=== PATIENT | female | born 1950 ===

== ENCOUNTER → 2018-05-26 | Outpatient (CLI) | payer MEDICARE ==
[~2018-05-26] MED LIST: DULO60CA6 PO; IOHEXOL 180 MG/ML 10 ML VIAL. ONE; LISI10TA2 PO; RANI150C PO; methylPREDNISolone ACETATE 40 MG/ML VIAL. ONE; methylPREDNISolone ACETATE 80 MG/ML VIAL. ONE; thyroid med
--- NOTE | 2018-05-28 05:21 | PAIN ---
DATE OF SERVICE: 05/27/2018 INITIAL CONSULTATION FOR PAIN CLINIC CHIEF COMPLAINT: Low back and bilateral lower extremity pain. HISTORY OF PRESENT ILLNESS: This is a 67-year-old female who presents with history of pain in the low back, bilateral lower extremities for about 8-12 months, gradually increasing, not a result any specific injury or action is aware of, but has had significant pain in the base of the neck and left shoulder as well in the past but her low back and bilateral lower extremities is the chief complaint at this time. The patient reports it is a constant, aching, sharp, dull, burning in the right hip with aching pain, changes during the day; worse with activity, standing, walking; awakens her from sleep at night at least 2-3 times a night without using any assistive devices but still has some difficulty with her ability to walk and is painful causing some significant fatigue in both lower extremities, right essentially equal to left. The patient did have an MRI scan of the lumbar spine showing central canal stenosis, moderate L4-L5 and mild from L1 through L4; neural foraminal stenosis, moderate on the left at L4-L5 and mild elsewhere and degenerative disk disease, moderate to severe at L2-L3 and L4-L5 as well. The patient had a cervical MRI scan done as well showed degenerative disk disease, mild C5-C6, moderate to severe osteoarthritis, resulting in [id number] neural foraminal stenosis bilaterally at the C5-C6 level with mild stenosis at C4-C5. The patient's disability rate 0-10, 10 being the worst, is a 7 with family home responsibilities and self-care, 9 with recreation and social activity, 6 with sexual behavior and 3 with life support activities. The patient has had chiropractic treatment as well as exercise, which she is doing currently, which helps to some extent but not significantly. The patient did have an epidural injection at an outside facility about 3-4 years ago, which was helpful as well but only mildly though. PAST MEDICAL HISTORY: Significant for diabetes; hypothyroidism; anemia, blood transfusions, autoimmune hemolytic anemia in the past, not since the year 1999; hypertension; diarrhea; irritable bowel syndrome; gastroesophageal reflux; headaches; depression and arthritis. PAST SURGICAL HISTORY: Previous surgeries include partial hysterectomy in 2010, left cataract extraction and I and D of the left elbow in the past. CURRENT MEDICATIONS: Include simvastatin, lisinopril, thyroid, ranitidine, Cymbalta and Bydureon one injection a week. ALLERGIES: The patient is allergic to IMITREX. FAMILY HISTORY: Significant for degenerative arthritis, diabetes and also cerebellar disorder in the patient's mother. SOCIAL HISTORY: The patient does not smoke; drinks 1-2 drinks a year alcohol at the most and not use any illegal, illicit or recreational drugs. She is single, reports living alone locally in [place], [place] and is currently retired. REVIEW OF SYSTEMS: The patient's review of systems is positive for those items mentioned in history of present illness. All systems reviewed and otherwise negative. It is complete, full and well documented on the patient's chart. PHYSICAL EXAMINATION: VITAL SIGNS: The patient's blood pressure is 159/92, pulse 68, respirations 18 and temperature 98.1 degrees Fahrenheit. Height is 5 feet 4 inches and weight is 180 pounds. GENERAL: The patient is awake, alert, oriented, appropriate and very pleasant demeanor. HEENT: Head shows normocephalic and atraumatic. Extraocular muscles are intact and symmetrical. Oral cavity: Mucous membranes moist and pink. Dentition is intact. NECK: Shows anterior throat supple without palpable lymphadenopathy noted. Swallow reflex is symmetrical. CHEST: Shows normal with inspection. Breath sounds clear to auscultation bilaterally. HEART: Shows S1 and S2 clear. No murmurs auscultated. ABDOMEN: Soft, nontender and nondistended. No palpable organomegaly is noted. No rebound or guarding demonstrated. BACK: Shows spine grossly in the midline. Normal appearing thoracic kyphosis and lumbar lordotic curvature. Lumbar paraspinous muscle shows symmetrical on inspection, on palpation shows some moderate tenderness diffusely in the low lumbar distribution but only diffusely without radiation. No tenderness over the spinous processes, sacrum or sacroiliac regions. EXTREMITIES: The patient's lower extremities show deep tendon reflexes 1+ in the patellar and tendo-calcaneus tendons. Motor exam is strong with 5/5 dorsiflexion, extension and quadriceps and hamstring flexion equal. Peripheral pulses are 1+ posterior tibia. No peripheral edema is noted. No clubbing or cyanosis. Lower extremities are warm and dry to touch, equal in color and appearance. The patient's upper extremities show deep tendon reflexes 2+/4 in the biceps and triceps tendons. Motor exam is approximately 4 on a scale of 5 on the left and 5/5 on the right with glass finisher strength, biceps, tricep flexion. Straight leg raise noted to be negative bilaterally as is Gaenslen's and Josh's maneuvers bilaterally. Peripheral pulses are 1+ posterior tibial. No peripheral edema is noted. A 2+ radial without peripheral edema in the upper extremities. Gaenslen's and Josh's maneuvers are negative bilaterally as well. The patient is able to stand, stand on her toes without significant difficulty or loss of balance, walks with a normal appearing gait, does not appear to favor the right or left lower extremity significantly on a short distance in the office today. The patient's skin shows warm and dry, good turgor. No edema. No sores, rashes or bruising. IMPRESSION: 1. This is a 67-year-old female with a long history low back and bilateral lower extremity pain for about 8-12 months in a radicular fashion. 2. MRI scan of lumbar spine as noted. 3. Arthritis. 4. Gastroesophageal reflux. 5. Hypertension. 6. Diabetes. PLAN: Options were discussed with the patient including conservative medical management, physical therapy, interventional techniques. She would like to pursue interventional techniques. We discussed a lumbar epidural steroid injection using description as well as anatomical models to describe the procedure. Risks were then discussed including, but not limited to bleeding, infection, possibility of epidural hematoma, subsequent neurologic compromise, dural puncture, headaches, spinal cord and/or nerve damage, side effects of steroid medication and poor results regarding pain control. The patient understands and wished to proceed. The patient will return to the clinic in approximately 2 weeks for followup, was counseled as to return appointment, activity level and side effects to be aware of. DIAGNOSIS: Lumbar radiculopathy with lumbar degenerative disk disease. PROCEDURE: Lumbar epidural steroid injection, translaminar approach, L4-L5 level, using C-arm fluoroscopic guidance under sterile prep and drape using local anesthetic. MEDICATION INJECTED: A total of 120 mg Depo-Medrol plus 10 mL of preservative-free normal saline and 2 mL of Isovue for contrast. CONDITION AT DISCHARGE: Stable. The patient tolerated the procedure well and had no complications. DEBBIE N. SANCHEZ, MD DR: DAVID/benjamin JOB#: [id number] / [id number]
== END | disposition home or self-care (01) ==
LOC: PNCL 10:44
PROVIDERS: ATTEND Anesthesiology
DX: M51.16 Intervertebral disc disorders with radiculopathy, lumbar region (principal); I10 Essential (primary) hypertension; K21.9 Gastro-esophageal reflux disease without esophagitis; E11.9 Type 2 diabetes mellitus without complications; E03.9 Hypothyroidism, unspecified; F32.9 Major depressive disorder, single episode, unspecified; M19.90 Unspecified osteoarthritis, unspecified site; Z90.710 Acquired absence of both cervix and uterus; Z98.42 Cataract extraction status, left eye; Z96.1 Presence of intraocular lens; Z98.890 Other specified postprocedural states; Z79.899 Other long term (current) drug therapy; Z88.8 Allergy status to other drugs, medicaments and biological substances; Z83.3 Family history of diabetes mellitus; Z82.61 Family history of arthritis; Z72.89 Other problems related to lifestyle; Z79.84 Long term (current) use of oral hypoglycemic drugs
CPT/HCPCS: 62323; J1030; J1040; Q9965

== ENCOUNTER → 2018-06-09 | Outpatient (CLI) | payer MEDICARE ==
--- NOTE | 2018-06-09 16:53 | PAIN ---
DATE OF SERVICE: 06/09/2018 DIAGNOSES: 1. Lumbar radiculopathy with lumbar degenerative disk disease. 2. Cervical radiculopathy with cervical degenerative disk disease. HISTORY OF PRESENT ILLNESS: The patient is a 67-year-old female who returns for a followup status post lumbar epidural steroid injection x 1. The patient reports no real appreciable improvement after the first injection, still pain in the low back and into the bilateral lower extremities, left greater than right. The patient reports it is worse with walking, standing, changing positions, described as constant, aching pain, burning and aching in the low back, radiating to the lower extremities, more on the right than the left, but present bilaterally. The patient reports it is an 8 on a scale of 10 at its worst, 8 on average, a 6 at its least and is an 8 today. The patient reports it awakens her from sleep about 2 hours at a time every night; worse with walking and standing, changing positions; better with sitting for a short period, but she was sitting on some bleachers about 2 days ago, which exacerbated the pain as well. The patient reports she felt bloated for about 3 days following the last injection and again no significant improvement. PHYSICAL EXAMINATION: VITAL SIGNS: Today, the patient's blood pressure is 125/84, pulse 74, respirations 16, temperature is 98.2 degrees Fahrenheit. Weight is 177 pounds. GENERAL: The patient is awake, alert, oriented, appropriate, very pleasant demeanor. HEENT: Shows normocephalic and atraumatic. The patient's oral cavity shows mucous membranes moist and pink. Dentition is intact. Extraocular movements are intact and symmetrical. NECK: Shows anterior throat supple without palpable lymphadenopathy noted. Swallow reflex symmetrical. CHEST: Shows normal with inspection. Breath sounds are clear to auscultation bilaterally. HEART: Shows S1, S2 clear. No murmurs auscultated. ABDOMEN: Soft, nontender, nondistended. No palpable organomegaly is noted. No rebound or guarding demonstrated. MUSCULOSKELETAL: Back shows spine grossly in the midline, normal appearing thoracic kyphosis and minor flattening of the lumbar lordotic curvature. Lumbar paraspinous muscle shows symmetrical on inspection, on palpation shows some moderate tenderness diffusely bilaterally, but only diffusely without radiation. The patient shows good rotational motion of the lumbar spine, both laterally as well as extension and flexion without significant difficulty. The patient's lower extremities show deep tendon reflexes 2+ in the patellar, 1+ in tendo-calcaneus tendons, equal. Motor exam is approximately 4 on a scale 5 on the left and 5/5 on the right with dorsiflexion, extension, quadriceps and hamstring flexion. Peripheral pulses are 1+ posterior tibial. No peripheral edema is noted bilaterally. PLAN: Options were discussed with the patient. The patient's old chart was reviewed as her current medication regimen and updated. Current review of systems updated today as well. We will proceed with a second in the series of lumbar epidural steroid injection today with fluoroscopic guidance. Risks were again discussed including, but not limited to bleeding, infection, possibility of epidural hematoma and subsequent neurological compromise, dural puncture, headaches, spinal cord and/or nerve damage, side effects of steroid medication and poor results regarding pain control. The patient understands and wished to proceed. The patient will return to the clinic in approximately 2 weeks for followup, was counseled on return appointment, activity level and side effects to be aware of. DIAGNOSIS: Lumbar radiculopathy with lumbar degenerative disk disease. PROCEDURES: Lumbar epidural steroid injection, translaminar approach, L4-L5 level using C-arm fluoroscopic guidance under sterile prep and drape using local anesthetic. MEDICATION INJECTED: A total of 120 mg of Depo-Medrol plus 10 mL of preservative-free normal saline and 2 mL of Isovue for contrast. CONDITION AT DISCHARGE: Stable. The patient tolerated the procedure well and had no complications. DEBBIE SANCHEZ MD DR: DAVID/benjamin JOB#: [id number] / [id number]
== END | disposition home or self-care (01) ==
LOC: PNCL 13:45
PROVIDERS: ATTEND Anesthesiology
DX: M51.16 Intervertebral disc disorders with radiculopathy, lumbar region (principal); M50.10 Cervical disc disorder with radiculopathy, unspecified cervical region
CPT/HCPCS: 62323; J1030; J1040; Q9965

== ENCOUNTER → 2018-06-23 | Outpatient (CLI) | payer MEDICARE ==
[~2018-06-23] MED LIST changes: -IOHEXOL 180 MG/ML 10 ML VIAL. ONE; -methylPREDNISolone ACETATE 40 MG/ML VIAL. ONE; -methylPREDNISolone ACETATE 80 MG/ML VIAL. ONE
--- NOTE | 2018-06-23 13:20 | PAIN ---
DATE OF SERVICE: 06/23/2018 DIAGNOSES: 1. Lumbar radiculopathy with lumbar degenerative disk disease. 2. Cervical radiculopathy with cervical degenerative disk disease. 3. Thoracic radiculopathy. HISTORY OF PRESENT ILLNESS: The patient is a 67-year-old female who returns for followup status post lumbar epidural steroid injection x 2. The patient reports only minimal decrease in pain in the low back in the bilateral lower extremities. The patient reports still pain in the base of the neck and in the left upper extremity and shoulder as well as some headaches, but her main complaint today is that she is having pain around the margin of the ribs anteriorly and laterally, also some pain in the mid upper back. The patient reports it is an 8 on a scale of 10 at its worst, 8 on average, 6 at its least and is an 8 today. The patient is aching, sharp, radiating, constant, becoming more severe. It does not appear to be positional in effect, has not had any injuries or action that she is aware of or anything that has caused the pain. The patient reports it wakes her from sleep at night, but only varies, not every night. She has been applying heat to her mid back, which seems to help as well as some low back pain and shoulder pain on the left and neck pain. The patient reports no motor or sensory deficits, no bowel or bladder incontinence, but is not sure what the new pain has come from and is becoming more severe than the back or the neck pain. PHYSICAL EXAMINATION: VITAL SIGNS: The patient's blood pressure 146/68, pulse 72, respirations 18, temperature is 98.3 degrees Fahrenheit, weight is 181 pounds. GENERAL: The patient is awake, alert, oriented, appropriate, very pleasant demeanor. HEENT: Shows normocephalic, atraumatic. Extraocular movements intact and symmetrical. Oral cavity: Mucous membranes moist and pink. Dentition is intact. NECK: Shows anterior throat supple without palpable lymphadenopathy noted. Swallow reflex symmetrical. CHEST: Shows normal with inspection. Breath sounds clear to auscultation bilaterally. HEART: Shows S1, S2 clear. No murmurs auscultated. ABDOMEN: Soft, nontender, nondistended. No palpable organomegaly is noted. No rebound or guarding demonstrated. BACK: The patient's back shows spine grossly in the midline, normal-appearing cervical lordotic curvature, thoracic kyphotic curvature and lumbar lordotic curvature. The patient's paraspinous musculature in the cervical distribution shows some moderate tenderness in the inferior aspect of the left greater than right, cervical paraspinous muscles into the left trapezius with some moderate tenderness, but without trigger points. The patient has good rotational motion of cervical spine, both laterally as well as extension and flexion without difficulty. Lumbar spine shows moderate tenderness as well in the middle and lower distribution of paraspinous muscles, but only diffusely without radiation. The patient shows good rotational motion as well as extension and flexion. The patient's thoracic spine shows some mild tenderness in the middle and lower distribution of paraspinous muscles, again appears roughly symmetrical, no evidence of atrophy, hypertrophy, no trigger points. The patient has good rotation both laterally as well as extension and flexion. Thoracic spine without exacerbation of pain. The patient's chest shows no rashes, no bruising, no discoloration in the area of pain bilaterally. The patient's lower extremities show deep tendon reflexes at 1+, patella and tendocalcaneous tendons. Motor exam is approximately 4 on a scale of 5, symmetrical and equal dorsiflexion and extension. Peripheral pulses are 1+ posterior tibial and 2+ radial. No peripheral edema is noted. Options were discussed with the patient. The patient's old chart was reviewed, as her current medication regimen updated. Current review of systems updated today as well, and we will order a thoracic MRI scan as she is having some significant radicular type pain in the bilateral approximately T8-10 distribution without inciting event. The patient was also given Medrol Dosepak with instructions and side effects to be aware of with the medication. We will follow up after MRI scan is obtained. DEBBIE SANCHEZ MD DR: DAVID/benjamin JOB#: [id number] / [id number]
== END | disposition home or self-care (01) ==
LOC: PNCL 11:47
PROVIDERS: ATTEND Anesthesiology
DX: M51.16 Intervertebral disc disorders with radiculopathy, lumbar region (principal); M50.10 Cervical disc disorder with radiculopathy, unspecified cervical region
CPT/HCPCS: G0463

== ENCOUNTER → 2018-07-18 | Outpatient (CLI) | payer MEDICARE ==
[~2018-07-18] MED LIST changes: +IOHEXOL 180 MG/ML 10 ML VIAL. ONE; +methylPREDNISolone ACETATE 40 MG/ML VIAL. ONE; +methylPREDNISolone ACETATE 80 MG/ML VIAL. ONE
--- NOTE | 2018-07-18 23:35 | PAIN ---
DATE OF SERVICE: 07/18/2018 DIAGNOSES: 1. Lumbar radiculopathy with lumbar degenerative disk disease. 2. Cervical radiculopathy with cervical degenerative disk disease. HISTORY OF PRESENT ILLNESS: The patient is a 68-year-old female who returns for followup status post lumbar epidural steroid injection x 2 with about 20% improvement, but very short, limited, only about 2-3 days. The patient reports still significant pain in the low back, in the lower extremities, more on the right than the left itself. Chief complaint is patient's neck and shoulder pain, more on the left than the right, also some mid upper back pain. We have obtained a thoracic MRI scan. She has some significant pain in the thoracic distribution, but essentially normal on report. The patient reports still significant pain in the base of the neck, left shoulder, left upper extremity radiating to the hand at times with numbness and tingling. The patient reports no new motor or sensory deficits, but reports the pain is 8-9 on a scale of 10 at its worst, 8 on average, 6 at its least and is an 8 today. The patient reports it is an aching, shooting, dull, radiating, at times constant, becoming more severe. The patient reports it is awakening her from sleep about every 2 hours or so. She has to reposition. She has basically been spending the time since her last visit in bed, she reports because of her neck, left shoulder, arm and her back pain. The patient reports no new motor or sensory deficits. No new bowel or bladder incontinence. PHYSICAL EXAMINATION: VITAL SIGNS: The patient's blood pressure is 147/82, pulse 85, respirations 18, temperature 98.2 degrees Fahrenheit, 5 feet 4-1/2 inches, weight is 184 pounds. GENERAL: The patient is awake, alert, oriented, appropriate, very pleasant demeanor. HEENT: Shows normocephalic, atraumatic. Extraocular movements are intact and symmetrical. Oral cavity: Mucous membranes moist and pink. Dentition is intact. NECK: Shows anterior throat supple without palpable lymphadenopathy noted. Swallow reflex is symmetrical. CHEST: Shows normal on inspection. Breath sounds are clear to auscultation bilaterally. HEART: Shows S1, S2 clear. No murmurs auscultated. ABDOMEN: Soft, nontender, nondistended. No palpable organomegaly is noted. No rebound or guarding demonstrated. MUSCULOSKELETAL: Back shows spine grossly in the midline. Cervical lordotic curvature is maintained as is thoracic kyphotic curvature and lumbar lordotic curvature. Cervical paraspinous muscle shows symmetrical on inspection. On palpation shows some moderate tenderness diffusely bilaterally, more in the left than the right in the superior medial trapezius as well as inferior cervical paraspinous musculature. The patient has good rotational motion of cervical spine, both laterally greater than 45 degrees right and left as well as extension greater than 10 degrees, forward flexion fully as well without significant pain reported. The patient's lower back shows lumbar paraspinous muscle shows symmetrical on inspection. With palpation shows some moderate tenderness diffusely throughout the middle and lower distribution of paraspinous muscles, but only diffusely without radiation. The patient's upper extremities shows deep tendon reflexes 2+ in the bicep and tricep tendons. Motor exam is 5/5 with asphalt plant laborer strength, bicep and tricep flexion. Lower extremities show deep tendon is 2+ in the patellar, 1+ tendo calcaneus tendon. Motor exam is 4 on a scale of 5, but equal and symmetrical with dorsiflexion and extension. Peripheral pulses are 2+ radial, 1+ posterior tibial. No edema is noted in upper or lower extremities. Options were discussed with the patient. The patient's old chart was reviewed as was her current medication regimen updated. Current review of systems is updated today as well and we will proceed with a cervical epidural steroid injection today, first in this series with third total as patient has had 2 lumbar epidural steroid injections. The patient would like to proceed. Risks were discussed including but not limited to bleeding, infection, possibility of epidural hematoma and subsequent neurological compromise, dural puncture, headaches, spinal cord and/or nerve damage, side effects of steroid medication and poor results regarding pain control. The patient understands and wished to proceed. The patient will return to the clinic in approximately 2 weeks for followup, was counseled on return appointment, activity level and side effects to be aware of. DIAGNOSES: Cervical radiculopathy with cervical degenerative disk disease. PROCEDURE: Cervical epidural steroid injection, translaminar approach C6-C7 level using C-arm fluoroscopic guidance under sterile prep and drape using local anesthetic. MEDICATION INJECTED: A total of 120 mg Depo-Medrol plus 5 mL of preservative-free normal saline and 2 mL of Isovue for contrast. CONDITION AT DISCHARGE: Stable. The patient tolerated the procedure well, had no complications. DEBBIE SANCHEZ MD DR: DAVID/benjamin JOB#: [id number] / [id number]
== END | disposition home or self-care (01) ==
LOC: PNCL 13:14
PROVIDERS: ATTEND Anesthesiology
DX: M50.123 Cervical disc disorder at C6-C7 level with radiculopathy (principal); M51.16 Intervertebral disc disorders with radiculopathy, lumbar region; Z88.8 Allergy status to other drugs, medicaments and biological substances
CPT/HCPCS: 62321; J1030; J1040; Q9965